=== PATIENT | male | born 1960 | race Caucasian/White ===

== ENCOUNTER → 2024-01-03 08:05 | Outpatient (BNVA) | payer MEDICARE, SELFPAY | PROVIDERS: Visit Provider Specialist | DX: G62.9 Polyneuropathy, unspecified (principal); G25.0 Essential tremor; F17.200 Nicotine dependence, unspecified, uncomplicated; Z71.6 Tobacco abuse counseling | CPT/HCPCS: 36415; 82607; 82746; 99204 ==